=== PATIENT | female | born 1935 | race Caucasian/White ===

== ENCOUNTER 2017-05-23 09:18 | Outpatient (CLI) | payer MEDICARE, BC ==
--- NOTE | 2017-05-23 11:15 | RAD ---
LUMBAR SPINE FOUR VIEWS: FINDINGS: Lateral views taken with neutral flexion and extension positions. On the AP projection, there is a scoliotic curvature to the left with apex at L2. Moderate degenerat iliana osteophytes are seen. On the lateral views, posterior alignment is preserved. No evidence of sp ondylolisthesis. No significant change in alignment with flexion and extension. Loss of disk space is seen at all levels of the lumbar spine. Facet hypertrophy is noted. IMPRESSION: Moderate degenerative changes of the lumbar spine, as described. There is associated scoliotic curva ture to the left. POS: [facility]
== END 2017-05-23 09:19 | disposition home or self-care (01) ==
LOC: TBSIIMAG 09:18
PROVIDERS: ATTEND Surgery
DX: M47.896 Other spondylosis, lumbar region (principal); M54.5 Low back pain; M41.9 Scoliosis, unspecified
CPT/HCPCS: 72110

== ENCOUNTER 2018-08-10 11:35 | Outpatient (CLI) | payer MEDICARE, BC ==
--- NOTE | 2018-08-10 14:16 | RAD ---
THREE VIEWS CERVICAL SPINE INCLUDING AP, LATERAL, AND OPEN MOUTH ODONTOID VIEWS: Comparison: 02-16-17 History: Neck pain, M54.2 FINDINGS: Three views of the cervical spine demonstrates some slight disc space height loss at the C3-4 level. There is significant disc space height loss at C4-5 with anterior and posterior osteophytes. There is also moderate disc space height loss at C5-6 with inferior endplate C5 sclerotic changes. Findings c ompatible with C4-5 and C5-6 changes of the spondylosis. C6-7 and C7-T1 are unremarkable. IMPRESSION: Mid cervical changes of spondylosis. POS: [facility]
--- NOTE | 2018-08-10 15:54 | MRI ---
MRI OF THE CERVICAL SPINE WITHOUT CONTRAST: INDICATION: An 83-year-old female with cervicalgia. TECHNIQUE: Multiplanar, multisequence MRI images were obtained of the cervical spine without IV contrast. COMPARISON: No MR comparisons are available. Comparisons are made with a prior cervical spine radiograph dated . FINDINGS: There is a small cystic lesion seen adjacent to the pituitary stalk and neurophysis of the pituitary gland measuring 4 mm. The remaining visualized aspects of the posterior fossa are unremarkable-appea ring. At C2-C3, there is a broad-based bulge with facet joint degenerative change, but no appreciable centr al canal or neural foraminal narrowing. At C3-4, there is a broad-based bulge with central disk protrusion causing mild effacement of the demetrio tral spinal cord. There is mild left neural foraminal narrowing due to facet hypertrophy and uncover tebral hypertrophy. At C4-5, there is a broad-based bulge with uncovertebral hypertrophy and facet joint degenerative ind ucing mild central canal narrowing with mild ventral cord flattening. There is severe bilateral neur al foraminal narrowing due to the uncovertebral hypertrophy and facet joint degenerative change. At 5-6, there is a broad-based disk-osteophyte complex and facet hypertrophy inducing severe central canal narrowing with moderate cord compression. There is some increased T2 signal seen within the co rd suspicious for either edema or myelomalacia. At the C6-7 level, there is a broad-based disk-osteophyte complex inducing moderate central canal nya rowing with mild ventral effacement of the spinal cord. Uncovertebral hypertrophy and facet joint de generative change induces moderate bilateral neural foraminal narrowing. At C7-T1, there is no appreciable central canal or neural foraminal narrowing. IMPRESSION: 1. Prominent central canal narrowing seen from C3-4 through C6-7. This is most severe at C5-6 where there is moderate cord flattening and mild internal cord signal abnormality suspicious for either ed greta or myelomalacia. 2. Multilevel neural foraminal narrowing. 3. Small cystic lesion is seen involving the posterior aspect of the pituitary gland requires furthe r evaluation. Recommend MRI of the head with and without contrast utilizing pituitary mass protocol. POS: [facility]
--- NOTE | 2018-08-10 16:08 | MRI ---
MR OF THE THORACIC SPINE WITHOUT CONTRAST: 08/10/18 INDICATION: History of low back pain and paresthesias within both legs. TECHNIQUE: Multiplanar and multisequence MRI images were obtained of the thoracic spine without contrast. FINDINGS: There are small suspected areas of focal fatty marrow versus hemangioma within the T9 and T10 vertebr al body. Similar appearing signal abnormalities are seen within T4 and T5 suspicious for small james iomas or areas of focal fatty marrow. There is multilevel disc degenerative disease. There is very subtle anterior translation of T2 on T3 which is felt to be likely degenerative in valentine ure. There are mild multilevel broad based bulges. Most prominent are seen at the T6-7 through T9-10 verte bral levels without appreciable central canal or neural foraminal narrowing. No definite cord christian lucy is evident. The cord signal appears within normal limits. There are multiple T2 hyperintensity seen filling the renal sinuses bilaterally that are T1 hypointen se suspicious for peripelvic renal cysts. There are small T2 hyperintensities seen within the right h epatic lobe which is nonspecific and may reflect small hepatic cysts. IMPRESSION: 1. Multilevel spondylosis of the thoracic spine with multilevel mild disc bulges with no appreci able central canal or neural foraminal narrowing. 2. Small T2 hyperintensity seen within the renal sinus likely reflecting peripelvic cysts. A re nal ultrasound may be helpful for improved characterization. 3. Small T2 hyperintensity, T1 hypointensities involving the right hepatic lobe likely reflectiv e of small cysts. POS: [facility]
--- NOTE | 2018-08-10 16:27 | MRI ---
MRI LUMBAR SPINE WITHOUT CONTRAST: Date: 08/10/18 INDICATION: Low back pain with paresthesia within both lower extremities. COMPARISON: Lumbar spine radiographs dated 05/23/17. FINDINGS: There are five lumbar-type vertebrae. There is levoscoliosis centered at the L2-3 level. Mild compens atory rightward curvature seen at L4-5. There is a prominent bony hemangioma within the right aspect of L4. Conus is seen to terminate at approximately L1. Visualized aspects of the retroperitoneum demonstrate multiple T2 hyperintensities seen filling the r enal sinuses with corresponding low T1 signal intensity most suspicious for peripelvic cysts. At the L5-S1 level, there is severe left facet joint degenerative change and broad based disc osteoph yte complex inducing mild bilateral neural foraminal narrowing, left greater than right. At L4-5, there is disc osteophyte complex with facet hypertrophy inducing mild bilateral neural maureen inal narrowing. At L3-4, there is an asymmetric to the left disc osteophyte complex with facet hypertrophy inducing m ild bilateral neural foraminal narrowing, left greater than right. At L2-3, there is disc osteophyte complex with facet hypertrophy inducing mild central canal narrowin g with mild bilateral neural foraminal narrowing. At L1-2, there is a disc osteophyte complex with facet hypertrophy causing mild effacement of the demetrio tral subarachnoid space. No appreciable central canal or neural foraminal narrowing. At T12-L1, there is no appreciable central canal or neural foraminal narrowing. IMPRESSION: 1. Moderate multilevel spondylosis of lumbar spine. There is mild central canal narrowing seen at L2 -3. 2. Multilevel mild neural foraminal narrowing as detailed above. 3. Suspected peripelvic cysts involving both kidneys. Renal ultrasound may be helpful to confirm. POS: [facility]
== END 2018-08-10 11:36 | disposition home or self-care (01) ==
LOC: SCSMRI 11:35
PROVIDERS: ATTEND Surgery
DX: M54.2 Cervicalgia (principal); M54.5 Low back pain; R20.2 Paresthesia of skin; M47.812 Spondylosis without myelopathy or radiculopathy, cervical region; M47.816 Spondylosis without myelopathy or radiculopathy, lumbar region; M48.061 Spinal stenosis, lumbar region without neurogenic claudication; M48.07 Spinal stenosis, lumbosacral region; M51.24 Other intervertebral disc displacement, thoracic region; M47.814 Spondylosis without myelopathy or radiculopathy, thoracic region; M48.02 Spinal stenosis, cervical region; E23.6 Other disorders of pituitary gland
CPT/HCPCS: 72040; 72141; 72146; 72148

== ENCOUNTER 2018-10-31 07:41 | Outpatient (CLI) | payer MEDICARE, BC ==
[2018-10-31 09:40] LABS: Hemoglobin 13.5 g/dL (12.0-16.0); Mean Corpuscular HGB CONC 33.2 g/dL (32.0-36.0); Mean Corpuscular Hemoglobin 31.4 pg (27.0-31.0); Mean Corpuscular Volume 94.4 fL (78.0-98.0); Mean Platelet Volume 6.8 fL (7.4-10.4); Platelet Count 279 thou/uL (130-400); RBC Distribution Width 11.6 % (11.5-14.5); Red Blood Cell (RBC) Count 4.29 mill/uL (4.20-5.40); White Blood Cell (WBC) Count 8.4 thou/uL (4.8-10.8)
[2018-10-31 09:47] LABS: Prothrombin Time 13.3 SEC (12.0-14.7)
[2018-10-31 09:59] LABS: Anion Gap 10 mmol/L (10-20); BUN (Urea Nitrogen) 12 mg/dL (9.8-20.1); Calc. Creatinine Clearance 0 mL/min (70-130); Calcium 11.4 mg/dL (7.8-10.44); Carbon Dioxide 31 mmol/L (23-31); Chloride 103 mmol/L (98-107); Estimated GFR-MDRD 72; Glucose 84 mg/dL (83-110); Potassium 4.5 mmol/L (3.5-5.1); Sodium 139 mmol/L (136-145)
== END 2018-10-31 07:42 | disposition home or self-care (01) ==
LOC: LABBT 07:41
PROVIDERS: ATTEND Surgery
DX: Z01.818 Encounter for other preprocedural examination (principal); M48.02 Spinal stenosis, cervical region; M54.12 Radiculopathy, cervical region
CPT/HCPCS: 80048; 85027; 85610; 85730; 93005; 93010

== ENCOUNTER 2018-11-07 06:12 | Inpatient (IN) | payer MEDICARE, BC ==
[2018-10-31 08:24] VITALS: BMI 23.8
[2018-11-07] MEDS ORDERED: Fentanyl 100 MCG/2 ML VIAL ONE ×3 (06:21→10:38)
[2018-11-07] MEDS ORDERED: Thrombin 5000 UNITS/5 ML VIAL ONE (06:33)
[2018-11-07] MEDS ORDERED: Bacitracin Zinc Ointment 30 gm TUBE ONE (06:33)
[2018-11-07] MEDS ORDERED: Sodium Chloride 0.9% 10 ML ONE (06:33)
[2018-11-07] MEDS ORDERED: Milk Of Magnesia 30 ML UDCUP PO PRN (09:43)
[2018-11-07] MEDS ORDERED: Morphine 2 MG/ML SYRINGE SLOW IVP PRN (09:43)
[2018-11-07] MEDS ORDERED: traMADol HCl 50 MG TAB PO PRN (09:43)
[2018-11-07] MEDS ORDERED: Mag-Al 1200 mg/1200 mg/30 ML UDCUP PO PRN (09:43)
[2018-11-07] MEDS ORDERED: Bisacodyl 10 MG SUPP PR PRN (09:43)
[2018-11-07] MEDS ORDERED: tiZANidine HCl 4 MG TAB PO PRN (09:43)
[2018-11-07] MEDS ORDERED: Promethazine HCl 25 MG/ML VIAL IM/IV PRN (09:43)
[2018-11-07] MEDS ORDERED: Fleet Enema 133 ML BOT PR PRN (09:43)
[2018-11-07] MEDS ORDERED: Acetaminophen/Codeine 30-300mg Tablet PO PRN (09:43)
[2018-11-07] MEDS ORDERED: Labetalol HCl 100 MG/20 ML VIAL ONE (09:49)
[2018-11-07] MEDS ORDERED: HYDROmorphone 2 MG/ML VIAL SLOW IVP PRN (09:50)
[2018-11-07] MEDS ORDERED: Ondansetron HCl/PF 4 MG/2 ML Vial IVP PRN (09:50)
[2018-11-07] MEDS ORDERED: Meperidine HCl/PF 25 MG/ML VIAL SLOW IVP PRN (09:50)
[2018-11-07] MEDS ORDERED: Morphine Sulfate 2 MG/ML SYRINGE SLOW IVP PRN (09:50)
[2018-11-07] MEDS ORDERED: Promethazine HCl 25 MG/ML VIAL SLOW IVP PRN (09:50)
[2018-11-07] MEDS ORDERED: Promethazine HCl 25 MG/ML VIAL IM PRN (09:50)
[2018-11-07] MEDS ORDERED: PACU-Morphine 4MG/ML VIAL SLOW IVP PRN (09:50)
[2018-11-07] MEDS ORDERED: Labetalol HCl 100 MG/20 ML VIAL SLOW IVP SCH (10:00)
[2018-11-07] MEDS ORDERED: Promethazine HCl 25 MG/ML VIAL ONE (11:26)
[2018-11-07] MEDS ORDERED: Rocuronium Bromide 10 MG/ML (10ML VIAL) ONE (11:30)
[2018-11-07] MEDS ORDERED: Ondansetron PF 4 MG/2 ML Vial ONE (11:30)
[2018-11-07] MEDS ORDERED: Dexamethasone 20 MG/5 ML VIAL ONE (11:30)
[2018-11-07] MEDS ORDERED: Glycopyrrolate 0.2 MG/ML 5 ML SYRINGE ONE (11:30)
[2018-11-07] MEDS ORDERED: ePHEDrine 50 MG/ML VIAL ONE (11:30)
[2018-11-07] MEDS ORDERED: Lidocaine 1% PF 5 ML VIAL ONE (11:30)
[2018-11-07] MEDS ORDERED: PROPOFOL 200 MG/20 ML VIAL ONE (11:30)
[2018-11-07] MEDS: Sodium Chloride 0.9% 1,000 ML IV SCH ×2 (13:05→23:46)
[2018-11-07] MEDS: CEFAZOLIN 2 GM in Premix Bag 1 BAG IVPB SCH ×2 (14:38→23:37)
[2018-11-07] MEDS: Lisinopril 20 MG TAB PO SCH (20:27)
[2018-11-08] MEDS: CEFAZOLIN 2 GM in Premix Bag 1 BAG IVPB SCH ×3 (06:01→22:51)
[2018-11-08] MEDS: Levothyroxine Sodium 88 MCG TAB PO SCH (06:01)
--- NOTE | 2018-11-08 09:25 | OP ---
DATE OF PROCEDURE: 11/07/2018 LOCATION: OR 5. BUSINESS LAW TEACHER: Sage Vizcarra PA-C WOUND CLASSIFICATION: Type 1 wound. PREPROCEDURE DIAGNOSES: Cervical myelopathy with cervical stenosis. POSTPROCEDURE DIAGNOSES: Cervical myelopathy with cervical stenosis. PROCEDURES PERFORMED: 1. Anterior C4-C5 and C5-C6 diskectomy for decompression of spinal cord nerve roots with placement of interbody spacer packed with allograft C4-C5 and C5-C6. 2. Use of operative microscope for microdissection procedure. 3. Anterior cervical plate and screw fixation, C4, C5, and C6. DESCRIPTION OF PROCEDURE: After informed consent was obtained from the patient, the patient was brought to the OR. Proper patient, pause, and identification were carried out. She was placed under excellent endotracheal anesthesia and positioned supine on the OR table. All appropriate points were padded and we placed the cervical spine in neutral position. Right anterior oblique clemencia was drawn out and this region was sterilely cleansed, prepared, and draped. Proper patient, pause, and identification were carried out. The wound was then opened with combination of sharp, monopolar, and blunt dissection and we proceeded lateral to the larynx and pharynx and medial to the right carotid sheath. We identified the prevertebral layer of deep cervical fascia and the longus colli muscles and these were swept laterally. Localization film confirmed our area of interest and retractors were placed. We then distracted the C3-C4 segment, the microscope was brought in for microdissection. Diskectomy at C4-C5 was then performed after distraction at C4-C5 and we had excellent decompression of spinal cord nerve roots. Interbody spacers placed at C4-C5 for arthrodesis and we then did the same procedure at C5-C6 with the distraction and diskectomy at C5-C6. Once the endplates were prepared and we were satisfied with our decompression, we then did place an interbody spacer at C5-C6 with satisfactory alignment of the spine. Copious irrigation occurred. The microscope was then removed. Anterior cervical plate and screw fixation at C4, C5, and C6 then occurred and we satisfied with our construct. Final tightening occurred. The wound was copiously irrigated. Hemostasis was maximized throughout. The wound was then closed in anatomic layers over drain. The patient then emerged from anesthesia. Job ID: [id number]
[2018-11-08] MEDS: Metamucil PACK PO SCH (09:45)
[2018-11-08] MEDS: Acetaminophen 325 MG TAB PO PRN ×2 (10:02→15:40)
--- NOTE | 2018-11-08 10:04 | PRG ---
DATE OF SERVICE: 11/08/2018 Comfort Jensen is postoperative day #1 from C4-C6 ACDF. She is doing very well with resolution in her arm pain. She has moderate dysphonia, but is tolerating orals. We will work on inpatient rehab as she lives alone. Job ID: [id number]
[2018-11-08] MEDS: HYDROcodone/Acetaminophen 7.5/325 mg Tablet PO PRN ×2 (12:24→17:45)
[2018-11-08] MEDS: Sodium Chloride 0.9% 1,000 ML IV SCH (14:55)
[2018-11-08] MEDS: Lisinopril 20 MG TAB PO SCH (20:58)
[2018-11-08] MEDS ORDERED: Dexamethasone 4 mg/ml Vial SLOW IVP SCH (22:00)
[2018-11-08] MEDS ORDERED: Cepastat Lozenges 1 LOZ PO PRN (22:00)
[2018-11-09] MEDS: Sodium Chloride 0.9% 1,000 ML IV SCH ×2 (02:29→15:41)
[2018-11-09] MEDS: Levothyroxine Sodium 88 MCG TAB PO SCH (06:01)
[2018-11-09] MEDS: CEFAZOLIN 2 GM in Premix Bag 1 BAG IVPB SCH ×3 (06:53→22:30)
[2018-11-09] MEDS: Metamucil PACK PO SCH (08:27)
[2018-11-09] MEDS ORDERED: Sodium Chloride 0.9% (PF) 10 ML VIAL FS PRN (09:12)
[2018-11-09] MEDS ORDERED: Pantoprazole 40 MG VIAL IVP SCH (09:15)
[2018-11-09] MEDS: Dexamethasone 4 mg/ml Vial SLOW IVP SCH ×3 (09:53→21:18)
[2018-11-09] MEDS: HYDROcodone/Acetaminophen 7.5/325 mg Tablet PO PRN ×3 (09:58→22:29)
--- NOTE | 2018-11-09 10:56 | PRG ---
DATE OF SERVICE: 11/09/2018 This is Sage Vizcarra PA-C dictating a report for Harpreet Post MD. Ms. Jensen is postoperative day #2 having undergone C4-C6 ACDF. She had some difficulty swallowing last night and states she even had a choking spell, was given Decadron which significantly improved her pain. She has had some coughing, but otherwise is tolerating liquids today. We will continue her on Decadron. She has continued good strength in the bilateral upper extremities. We would like her swallowing to improve prior to discharge to inpatient rehab, but I have discussed her case with the case management lays on for [facility]. We will keep her antibiotics as well as GIANCARLO drain, but likely plan for dismissal tomorrow. Job ID: [id number]
[2018-11-09] MEDS: Lisinopril 20 MG TAB PO SCH (21:18)
[2018-11-10] MEDS: Dexamethasone 4 mg/ml Vial SLOW IVP SCH ×4 (05:11→20:53)
[2018-11-10] MEDS: Levothyroxine Sodium 88 MCG TAB PO SCH (05:11)
[2018-11-10] MEDS: Sodium Chloride 0.9% 1,000 ML IV SCH (05:25)
[2018-11-10] MEDS: CEFAZOLIN 2 GM in Premix Bag 1 BAG IVPB SCH (06:05)
[2018-11-10] MEDS: Cetirizine HCl 10 MG TAB PO SCH (09:12)
[2018-11-10] MEDS: Pantoprazole 40 MG VIAL IVP SCH (09:15)
[2018-11-10] MEDS: Metamucil PACK PO SCH (09:15)
--- NOTE | 2018-11-10 11:01 | PRG ---
DATE OF SERVICE: 11/10/2018 Ms. Jensen is hospital day 3 following ACDF. She had issues with dysphagia yesterday due to pharyngoesophageal edema, however, these have improved with Decadron. Her drain output has been 20 mL overnight. She is asking for escalation in her diet. She has no neck pain or arm pain and has improved strength in her extremities. We are making arrangements for to go to inpatient rehab even today. Hopefully, given her improvement, we will do a taper over the next 3 days of her steroid and remove her drain. Job ID: [id number]
[2018-11-10] MEDS: Lisinopril 20 MG TAB PO SCH (20:53)
[2018-11-11] MEDS: Dexamethasone 4 mg/ml Vial SLOW IVP SCH ×4 (03:49→20:52)
[2018-11-11] MEDS: Levothyroxine Sodium 88 MCG TAB PO SCH (06:16)
--- NOTE | 2018-11-11 10:00 | PRG ---
DATE OF SERVICE: 11/11/2018 I saw Ms. Jensen in the hospital room this morning. She was adjusting the shades and out of bed when I came in the room. She is feeling much better than she did yesterday. Her dressing is still on. She is having no trouble eating, and wants to advance her diet. I do not find any concerning vital signs. Her neurological examination is good. Ms. Jensen feels as though going home without any help there would be risky for her and awaits an inpatient rehabilitation bed. Job ID: [id number]
[2018-11-11] MEDS: Cetirizine HCl 10 MG TAB PO SCH (10:07)
[2018-11-11] MEDS: Metamucil PACK PO SCH (10:09)
[2018-11-11] MEDS: Pantoprazole 40 MG VIAL IVP SCH (10:09)
[2018-11-11] MEDS: Lisinopril 20 MG TAB PO SCH (20:51)
[2018-11-12] MEDS: Dexamethasone 4 mg/ml Vial SLOW IVP SCH ×2 (04:02→09:02)
[2018-11-12] MEDS: Levothyroxine Sodium 88 MCG TAB PO SCH (04:12)
[2018-11-12] MEDS: Cetirizine HCl 10 MG TAB PO SCH (09:03)
[2018-11-12] MEDS: Pantoprazole 40 MG VIAL IVP SCH (09:03)
[2018-11-12] MEDS: Metamucil PACK PO SCH (09:03)
--- NOTE | 2018-11-12 10:07 | PRG ---
DATE OF SERVICE: 11/12/2018 I saw Ms. Jensen in her hospital room this morning. She is ready for transfer to inpatient rehabilitation. I do not find any new neurological deficit. We will anticipate discharge tomorrow. Job ID: [id number]
[2018-11-12 12:22] VITALS: BP 164/82; TEMP 97.9
[2018-11-12] MEDS ORDERED: Dexamethasone 4 mg/ml Vial SLOW IVP SCH (15:00)
== END 2018-11-12 14:50 | DRG 472 ==
LOC: SDC 06:12 → SURG A 16:45
PROVIDERS: ADMIT Surgery; ATTEND Surgery
PROC: 0RG20A0 Fusion of 2 or more Cervical Vertebral Joints with Interbody Fusion Device, Anterior Approach, Anterior Column, Open Approach (ICD-10-PCS; principal; 2018-11-07)
PROC: 0RB30ZZ Excision of Cervical Vertebral Disc, Open Approach (ICD-10-PCS; 2018-11-07)
DX: M48.02 Spinal stenosis, cervical region (principal); G99.2 Myelopathy in diseases classified elsewhere; R49.0 Dysphonia; R13.14 Dysphagia, pharyngoesophageal phase; I10 Essential (primary) hypertension; E03.9 Hypothyroidism, unspecified; Z90.710 Acquired absence of both cervix and uterus
CPT/HCPCS: 76000; C1713; C1776; C9113; J0690; J1100; J2001; J2405; J2550; J2704; J3010; J3490

== ENCOUNTER 2018-12-18 08:18 | Outpatient (CLI) | payer MEDICARE, BC ==
--- NOTE | 2018-12-18 09:04 | RAD ---
Exam: Cervical spine 3 views: HISTORY: Neck pain following surgery. Anterior cervical fusion changes at C4, C5, and C6. C7-T1 is partially obscured but there appears to be approximately 0.3 cm of anterolisthesis of C7 on T1 C1 and odontoid are obscured on the AP open mouth view. Generalized spondylosis. No significant prevertebral soft tissue swelling. IMPRESSION: Anterior cervical fusion changes at C4, C5, and C6. Somewhat poorly defined C7-T1 region although appearance is worrisome for up to 0.3 cm anterolisthesi s of C7 on T1. Depending upon concern, follow-up CT scan might give additional information.
== END 2018-12-18 08:19 | disposition home or self-care (01) ==
LOC: TBSIIMAG 08:18
PROVIDERS: ATTEND Surgery
DX: M54.2 Cervicalgia (principal); Z98.1 Arthrodesis status
CPT/HCPCS: 72040

== ENCOUNTER 2019-04-11 12:40 | Outpatient (CLI) | payer MEDICARE, BC ==
--- NOTE | 2019-04-11 14:04 | RAD ---
CERVICAL SPINE THREE VIEWS: INDICATIONS: Surgical followup. Cervical pain. COMPARISON: 12/18/2018 FINDINGS: Postop changes are again noted. Anterior plate and screws transfix C4, C5 and C6. Interbody implant i s seen at these levels. The plate and screws are not adhered to the anterior cortex and the interbody implants show anterior displacement at both these levels, unchanged from the prior exam. The retraction of screws at C4 appears slightly increased when compared to the prior lateral view. So me of this appearance may be projectional. Mild anterolisthesis at C7-T1 is noted but is less pronounced than on the prior study. IMPRESSION: Postoperative changes cervical spine again noted. Question increasing retraction of the plate and scr ews, especially at the C4 body when compared to the previous lateral view. Disk implants show anterio r displacement but appear stable since prior examination. POS: [facility]
== END 2019-04-11 12:41 | disposition home or self-care (01) ==
LOC: TBSIIMAG 12:40
PROVIDERS: ATTEND Surgery
DX: M50.00 Cervical disc disorder with myelopathy, unspecified cervical region (principal); Z98.890 Other specified postprocedural states
CPT/HCPCS: 72040

== ENCOUNTER 2019-05-23 08:42 | Emergency (ER) | payer MEDICARE, BC ==
[2019-05-23 09:34] LABS: #Basophils 0.1 thou/uL (0.0-0.2); #Eosinphils 0.1 thou/uL (0.0-0.7); #Lymphocytes 1.7 thou/uL (1.20-3.40); #Monocytes 0.4 thou/uL (0.11-0.59); #Neutrophils 5.5 thou/uL (1.40-6.50); %Basophils 0.7 % (0.0-1.0); %Eosinophils 1.6 % (0.0-10.0); %Lymphocytes 21.4 % (21.0-51.0); %Monocytes 5.6 % (0.0-10.0); %Neutrophils 70.7 % (42.0-75.0); Hemoglobin 13.7 g/dL (12.0-16.0); Mean Corpuscular HGB CONC 33.4 g/dL (32.0-36.0); Mean Corpuscular Hemoglobin 31.5 pg (27.0-31.0); Mean Corpuscular Volume 94.4 fL (78.0-98.0); Mean Platelet Volume 6.9 fL (7.4-10.4); Platelet Count 248 thou/uL (130-400); Red Blood Cell (RBC) Count 4.34 mill/uL (4.20-5.40); White Blood Cell (WBC) Count 7.7 thou/uL (4.8-10.8)
[2019-05-23 09:49] LABS: ALT (SGPT) 13 U/L (8-55); AST (SGOT) 17 U/L (5-34); Albumin 4.4 g/dL (3.4-4.8); Alkaline Phosphatase 79 U/L (40-110); Anion Gap 10 mmol/L (10-20); BUN (Urea Nitrogen) 12 mg/dL (9.8-20.1); Bilirubin, Total 0.6 mg/dL (0.2-1.2); Calc. Creatinine Clearance 0 mL/min (70-130); Calcium 10.3 mg/dL (7.8-10.44); Carbon Dioxide 31 mmol/L (23-31); Chloride 105 mmol/L (98-107); Estimated GFR-MDRD 77; Globulin 2.7 g/dL (2.4-3.5); Glucose 95 mg/dL (83-110); Lipase 24 U/L (8-78); Potassium 4.1 mmol/L (3.5-5.1); Protein, Total 7.1 g/dL (6.0-8.3); Sodium 142 mmol/L (136-145)
[2019-05-23 10:17] LABS: Bilirubin Negative (Negative); Blood, Urine Negative (Negative); Clarity Clear (Clear); Glucose, Urine (Dipstick) Normal (Negative); Leukocyte Negative Leu/uL (Negative); Nitrite Negative (Negative); Protein, Urine (Dipstick) Negative (Neg-Trace); Urobilinogen Normal mg/dL (Less than 2)
--- NOTE | 2019-05-23 10:32 | RAD ---
EXAM: Chest one view: HISTORY: Right upper quadrant pain COMPARISON: None FINDINGS: Right hemidiaphragm elevation. Increased markings more so on the right base with associated right hemidiaphragm elevation, probably chronic. Heart size: Within normal limits. Lungs: Clear of acute process. No evidence for confluent pneumonia, pleural effusion, acute edema, or pneumothorax, or other signifi cant acute process. IMPRESSION: No significant acute intrathoracic disease.
--- NOTE | 2019-05-23 11:37 | ULT ---
EXAM: US Gallbladder RUQ CLINICAL HISTORY: Right upper quadrant pain.. COMPARISON: None. FINDINGS: Pancreas: The head of the pancreas has a normal echotexture. The remainder the pancreas is obscured by bowel gas Liver:Normal hepatic parenchymal echotexture. No hepatic masses or intrahepatic biliary dilatation. T he contour of the hepatic margins maintained. Right hepatic lobe measures 16.5 cm IVC and aorta: Visualized IVC and aorta have a normal caliber Gallbladder: No sonographic evidence of cholelithiasis, gallbladder wall thickening or pericholecysti c fluid. Note is made of a fold in the gallbladder fundus. Fox's sign:Not commented upon Portal Vein: Patent. Appropriate directional flow Bile ducts: Common bile duct diameter 0.4 cm Right kidney: Moderate right-sided hydronephrosis.. Right kidney measures 10.4 x 5.7 x 5.8 cm in max th. IMPRESSION: 1. No sonographic evidence of cholelithiasis or cholecystitis. 2. Moderate right-sided hydronephrosis.
== END 2019-05-23 12:10 | disposition home or self-care (01) ==
LOC: ERS 08:42
DX: N13.2 Hydronephrosis with renal and ureteral calculous obstruction (principal); R10.11 Right upper quadrant pain; E03.9 Hypothyroidism, unspecified; I10 Essential (primary) hypertension
CPT/HCPCS: 36415; 71045; 76705; 80053; 81003; 83690; 84484; 85025; 93005

== ENCOUNTER 2019-07-17 13:19 | Outpatient (CLI) | payer MEDICARE, BC ==
--- NOTE | 2019-07-17 13:47 | RAD ---
EXAM: XR Lumbar Spine Bending Min 4V PROVIDED CLINICAL HISTORY: Bilateral leg paresthesias COMPARISON: None FINDINGS: There is left convex rotoscoliosis of the thoracolumbar spine. 5 nonrib-bearing lumbar-type vertebral bodies are seen. Multilevel degenerative changes are identified with narrowing of the intervertebral disc spaces at multiple levels of the lumbar spine. Multilevel osteophytes are also vi sualized. Endplate degenerative changes are seen at the L1-2 level on the right. No definitive fracture is appreciated on this exam. There is no evidence of a subluxation. There is loss of the nor mal lumbar curvature. Facet degenerative changes are present in the lower lumbar spine. Vascular calcifications are seen in the abdominal aorta and involving the iliac arteries. Vascular st ent overlies upper pelvis. IMPRESSION: Multilevel degenerative changes lumbar spine with left convex rotoscoliosis thoracolumbar spine.
--- NOTE | 2019-07-17 15:44 | MRI ---
MRI LUMBAR SPINE WITH AND WITHOUT CONTRAST: DATE: 07/17/19 HISTORY: 84-year-old female with ICD-10: R20.2, bilateral leg paresthesia. R20.2, paresthesia of both feet. M54.5, low back pain. History of sarcoma of the lower extremity. COMPARISON: Noncontrast MRI of 08/10/18. TECHNIQUE: Multiple sequences obtained in axial and sagittal planes, pre and post IV injection of gadolinium-bas ed contrast agent: 12 mL Multihance. FINDINGS: Large hemangioma of bone at L4 vertebral body. There are five lumbar type vertebrae. Levoscoliosis with apex of curvature at L1-2. Vertebral body heights are maintained. Again noted are the multiple bilateral parapelvic renal cysts, unchanged. Asymmetrically high grade degenerative disc disease along the right concavities of the curvature, at L1-2 and L2-3, with high grade disc space narrowing and Modic type I marrow edema, unchanged. Asymmetrical left high grade degenerative disc disease along the concavities of the countercurvature at L4-5 and L5-S1, including Modic type I end plate marrow edema at L5-S1 on the left. The T12-L1 and L3-4 disc spaces are preserved. No major spondylolisthesis. Conus medullaris terminate s at L1. Bone marrow enhancement in the same areas as Modic type I changes mentioned above. No compelling evidence of skeletal metastasis. No abnormal enhancement or mass within the spinal liza l identified. T12-L1: Normal. L1-2: No high grade central stenosis. Mild right neural foraminal stenosis. No left neural foraminal stenosis. Diffuse disc bulge. Right sided mild to moderate facet DJD. L2-3: Slight degenerative retrolisthesis of L2 on L3. Diffuse disc bulge. Moderate central spinal can al stenosis. Mild to moderate bilateral neural foraminal stenosis. L3-4: Diffuse disc bulge. High grade bilateral facet DJD. No high grade central spinal canal stenosis . Mild right neural foraminal stenosis. Moderate left neural foraminal stenosis. L4-5: Generous caliber of spinal canal and thecal sac. Asymmetrically high grade left facet DJD. Mild right facet DJD. Mild right neural foraminal stenosis. Mild to moderate left neural foraminal stenos is. L5-S1: Generous caliber of spinal canal and thecal sac. Mild to moderate right neural foraminal steno sis. Moderate left neural foraminal stenosis. No significant interval change overall. IMPRESSION: 1. Lumbar spondylosis with multilevel degenerative disc disease and high grade facet osteoarthro sis. 2. Levoscoliosis. 3. No evidence of metastatic disease. 4. Moderate central spinal canal stenosis at L2-3. 5. Mild and moderate neural foraminal stenosis at multiple levels. 6. No severe neural foraminal stenosis or severe central spinal canal stenosis at any level. 7. No interval change overall since 08/10/18. MAYA Denise POS: [facility]
== END 2019-07-17 13:20 | disposition home or self-care (01) ==
LOC: TBSIIMAG 13:19
PROVIDERS: ATTEND Physician Assistant Surgical
DX: M54.5 Low back pain (principal); R20.2 Paresthesia of skin; M51.36 Other intervertebral disc degeneration, lumbar region; M47.816 Spondylosis without myelopathy or radiculopathy, lumbar region; M41.85 Other forms of scoliosis, thoracolumbar region; M48.061 Spinal stenosis, lumbar region without neurogenic claudication; M48.07 Spinal stenosis, lumbosacral region
CPT/HCPCS: 72120; 72158